=== PATIENT | female | born 1975 | race Hispanic/Latino ===

== ENCOUNTER 2017-09-28 14:11 | Emergency (ER) | payer OTHER ==
[2017-09-28] MEDS ORDERED: DEXAMETHASONE SOD PHOSPHATE 10MG/ML 1ML VIAL ONE (14:42)
[2017-09-28] MEDS ORDERED: ONDANSETRON ODT 4 MG TAB ONE (14:43)
[2017-09-28] MEDS ORDERED: MORPHINE SULFATE 4 MG/1ML SYG ONE (14:43)
[2017-09-28 14:45] LABS: APPEARANCE,URINE Clear (CLEAR); BILIRUBIN,URINE Negative (NEGATIVE); COLOR,URINE Yellow (YELLOW); GLUCOSE, URINE (UA) Negative (NEGATIVE); KETONES,URINE Negative (NEGATIVE); LEUKOCYTE ESTERASE ,URINE Negative (NEGATIVE); NITRATE,URINE Negative (NEGATIVE); OCCULT BLOOD,URINE Negative (NEGATIVE); PH,URINE 6.5 (5.0-8.0); PROTEIN,URINE Negative (NEGATIVE)
[2017-09-28 14:48] LABS: HCG,QUAL RESULT NEGATIVE (NEGATIVE)
== END 2017-09-28 16:22 | disposition home or self-care (01) ==
LOC: EDH 14:11
DX: M54.5 Low back pain (principal)
CPT/HCPCS: 72100; 81003; 81025; 96372 ×2; 99285; J1100; J2270